=== PATIENT | female | born 1955 | race Two or more races ===

== ENCOUNTER 2017-10-30 11:12 | Day surgery (SDC) | payer OTHER ==
[2017-10-30 11:50] LABS: *BILIRUBIN,URIN NEGATIVE (NEGATIVE); *BLOOD, URINE NEGATIVE (NEGATIVE); *CLARITY,URINE CLEAR (CLEAR); *COLOR,URINE YELLOW (YELLOW); *KETONES,URINE NEGATIVE (NEGATIVE); *PROTEIN,URINE NEGATIVE (NEGATIVE); *UROBILINOGEN,URINE 0.2 E.U./dl (NORMAL); LEUKOCYTE ESTERASE ,URINE NEGATIVE (NEGATIVE); NITRITE, URINE NEGATIVE (NEGATIVE); UGLUCOSE NEGATIVE (NEGATIVE)
[2017-10-30] MEDS ORDERED: POLYMYXIN B SULFATE 500,000 UNITS, BACITRACIN 50,000 UNITS, NORMAL SALINE 20 ML MC ONE ×3 (12:00)
[2017-10-30 12:05] LABS: BACTERIA,URINE NONE SEEN /HPF (NONE SEEN); MUCUS,URINE FEW /LPF (0-FEW); SQUAMOUS EPITHELIAL CELL,UR FEW /HPF (NONE SEEN); WBC,URINE 0-3 /HPF (0-3)
[2017-10-30] MEDS ORDERED: BUPIVACAINE PF 0.5% 30 ML VIAL ONE (13:53)
[2017-10-30] MEDS ORDERED: LIDOCAINE HCL 2% 20 ML VIAL MC ONE (15:24)
[2017-10-30] MEDS ORDERED: CEFAZOLIN 1 G VIAL MC ONE (15:24)
[2017-10-30] MEDS ORDERED: IV LACTATED RINGERS SOLUTION 1,000 ML BAG MC ONE (15:24)
[2017-10-30] MEDS ORDERED: PROPOFOL 200 MG/20 ML BOTTLE IV ONE (15:24)
[2017-10-30] MEDS ORDERED: SEVOFLURANE 250 ML BOTTLE IH ONE (15:24)
[2017-10-30] MEDS ORDERED: ONDANSETRON 4 MG/2 ML VIAL IV ONE (15:24)
[2017-10-30] MEDS ORDERED: FENTANYL CITRATE 100 MCG/2 ML AMPUL ONE (17:06)
[2017-10-30] MEDS ORDERED: ONDANSETRON 4 MG/2 ML VIAL ONE (17:15)
== END 2017-10-30 18:30 | disposition home or self-care (01) ==
LOC: DS 11:12
PROVIDERS: ATTEND Orthopaedic Surgery
DX: G56.01 Carpal tunnel syndrome, right upper limb (principal)
CPT/HCPCS: A4649; A4663; J0690; J2405; J3010; J3490; J7120